=== PATIENT | female | born 1960 | race Caucasian/White ===

== ENCOUNTER 2020-08-03 08:02 | Outpatient (REF) | payer BC, SELFPAY ==
[2020-08-03 11:49] LABS: Alanine Aminotransferase 14 U/L (0-31); Albumin Level 4.2 g/dL (3.5-5.0); Alkaline Phosphatase 62 U/L (39-117); Anion Gap 12 (12-20); Aspartate Amino Transferase 21 U/L (5-31); Bilirubin Total 1.2 mg/dL (0.0-1.0); Blood Urea Nitrogen 18 mg/dL (9-16); Calcium 8.9 mg/dL (8.4-10.2); Carbon Dioxide 28 mmol/L (22-29); Chloride 101 mmol/L (96-108); Cholesterol 168 mg/dL; Estimated Glomerular Filt Rate 56; Glucose Fasting 79 mg/dL (60-99); HDL Cholesterol 46 mg/dL; LDL Cholesterol Calculated 112 mg/dl; Potassium 4.3 mmol/l (3.3-5.1); Sodium 137 mmol/L (135-145); Total Protein 6.8 g/dL (6.5-8.0); Triglycerides 52 mg/dL
== END 2020-08-03 08:03 | disposition home or self-care (01) ==
LOC: HO.HMGCLDS 08:02
PROVIDERS: PCP Internal Medicine; Visit Provider Internal Medicine
DX: F41.9 Anxiety disorder, unspecified (principal); E03.9 Hypothyroidism, unspecified; E78.2 Mixed hyperlipidemia
CPT/HCPCS: 80053; 80061

== ENCOUNTER 2021-05-14 09:03 | Outpatient (REF) | payer BC, SELFPAY ==
--- NOTE | ~2021-05-14 | XR_ITS ---
EXAMINATION: XR CERVICAL SPINE CLINICAL INFORMATION: Cervical disc disorder. COMPARISON: None TECHNIQUE: 5 views of the cervical spine were obtained. FINDINGS: There is normal cervical lordosis and spinal alignment with apex at C5. Mild multilevel anterior osteophyte formation is seen. The vertebral bodies and intervertebral disc spaces are unremarkable. The neural foramina are patent. The facet joints are unremarkable. The spinous processes are intact. The odontoid process is intact. The prevertebral soft tissues are unremarkable. XR/XR cervical spine 4V IMPRESSION: Mild reversal the normal cervical lordosis may be secondary to positioning and/or muscle spasm. No other significant abnormality.
== END 2021-05-14 09:04 | disposition home or self-care (01) ==
LOC: HO.HMGCX 09:03
PROVIDERS: PCP Internal Medicine; Visit Provider Nurse Practitioner Family
DX: M50.90 Cervical disc disorder, unspecified, unspecified cervical region (principal)
CPT/HCPCS: 72050

== ENCOUNTER 2021-06-11 11:22 | Outpatient (REF) | payer BC, SELFPAY ==
--- NOTE | ~2021-06-11 | US_ITS ---
EXAMINATION: US SOFT TISSUE NECK CLINICAL INFORMATION: Cervicalgia COMPARISON: X-ray of the cervical spine April 2021 TECHNIQUE: Ultrasound of the left posterior neck soft tissues is performed with high- frequency chavez-scale imaging and color Doppler. FINDINGS: No abnormality is evident by ultrasound. No adenopathy, mass or fluid collection is seen. US/US soft tiss head and/or neck IMPRESSION: No abnormality seen by ultrasound.
== END 2021-06-11 11:23 | disposition home or self-care (01) ==
LOC: HO.HMGCX 11:22
PROVIDERS: PCP Internal Medicine; Visit Provider Nurse Practitioner Family
DX: M54.2 Cervicalgia (principal)
CPT/HCPCS: 76536

== ENCOUNTER 2021-08-05 10:24 | Outpatient (REF) | payer BC, SELFPAY ==
--- NOTE | ~2021-08-05 | MR_ITS ---
EXAMINATION: MR BRAIN WITHOUT AND WITH CONTRAST CLINICAL INFORMATION: Trigeminal neuralgia. Left facial pain. COMPARISON: No relevant prior imaging. TECHNIQUE: Multiplanar MR imaging of the brain was performed without and with contrast. A total of 6.5 mL Gadavist was utilized for this examination. FINDINGS: Dedicated imaging through the posterior fossa reveals no cerebellopontine angle cistern mass. There is no abnormal enhancement along the cisternal segments of the 5th cranial nerves. No identifiable neurovascular conflict. Cavernous sinuses enhance symmetrically. Meckel's caves are unremarkable. 7th and 8th cranial nerve complexes are unremarkable. There is no mastoid or middle ear effusion. No abnormal petrous temporal bone enhancement. Postcontrast images of the whole brain reveal no abnormal mass or enhancement elsewhere within the intracranial compartment. No intracranial mass effect or midline shift. Lateral and third ventricles are normal. No hydrocephalus. Midline structures including the cervicomedullary junction are normal. No acute bone marrow signal changes. There is no acute territorial infarct. Intracranial vascular flow voids are maintained. No active paranasal sinus disease. Globes and orbits are symmetric. MR/MR head/brain wo/w con IMPRESSION: Normal brain MRI. No discrete anatomic finding to provide a definitive explanation for this patient's left facial pain.
== END 2021-08-05 10:25 | disposition home or self-care (01) ==
LOC: HO.MRI 10:24
PROVIDERS: Visit Provider Psychiatry & Neurology Neurology
DX: G50.0 Trigeminal neuralgia (principal)
CPT/HCPCS: 70553; A9585

== ENCOUNTER 2021-09-03 09:40 | Outpatient (REF) | payer BC, SELFPAY ==
[2021-09-03 11:43] LABS: Hematocrit 41.2 % (37.0-47.0); Hemoglobin 14.2 g/dl (12.0-16.0); Mean Corpuscular HGB Conc 34.5 g/dl (31.0-35.0); Mean Corpuscular Hemoglobin 32.3 pg (27.0-33.0); Mean Corpuscular Volume 93.8 fL (80.0-98.0); Mean Platelet Volume 10.4 fL (9.4-12.3); Platelet Count 221 X10*3/uL (160-400); Red Blood Count 4.39 X10*6/uL (4.20-5.50); Red Cell Distribution Width 11.8 % (11.0-16.0); White Blood Count 4.7 X10*3/uL (4.8-10.8)
[2021-09-03 12:11] LABS: Alanine Aminotransferase 39 U/L (0-31); Albumin Level 4.1 g/dL (3.5-5.0); Alkaline Phosphatase 50 U/L (39-117); Anion Gap 12 (12-20); Aspartate Amino Transferase 39 U/L (5-31); Bilirubin Total 0.7 mg/dL (0.0-1.0); Blood Urea Nitrogen 20 mg/dL (9-16); Calcium 9.6 mg/dL (8.4-10.2); Carbon Dioxide 28 mmol/L (22-29); Chloride 104 mmol/L (96-108); Cholesterol 174 mg/dL; Estimated Glomerular Filt Rate > 60; Glucose Fasting 87 mg/dL (60-99); HDL Cholesterol 52 mg/dL; LDL Cholesterol Calculated 106 mg/dl; Potassium 4.5 mmol/L (3.3-5.1); Sodium 139 mmol/L (135-145); Total Protein 6.6 g/dL (6.5-8.0); Triglycerides 82 mg/dL
[2021-09-03 12:15] LABS: TSH reflex Free T4 0.04 uIU/mL (0.32-4.0)
[2021-09-03 12:55] LABS: Free T4 (Free Thyroxine) 1.47 ng/dL (0.71-1.85)
== END 2021-09-03 09:41 | disposition home or self-care (01) ==
LOC: HO.HMGCLDS 09:40
PROVIDERS: PCP Internal Medicine; Visit Provider Internal Medicine
DX: E78.5 Hyperlipidemia, unspecified (principal); E03.9 Hypothyroidism, unspecified; Z87.42 Personal history of other diseases of the female genital tract
CPT/HCPCS: 36415; 80053; 80061; 84439; 84443; 85027

== ENCOUNTER 2021-11-11 13:37 | Outpatient (REF) | payer BC, SELFPAY ==
[2021-11-11 16:54] LABS: Alanine Aminotransferase 18 U/L (0-31); Albumin Level 4.1 g/dL (3.5-5.0); Alkaline Phosphatase 72 U/L (39-117); Aspartate Amino Transferase 18 U/L (5-31); Bilirubin Direct 0.3 mg/dL (0.0-0.5); Bilirubin Total 0.8 mg/dL (0.0-1.0); Total Protein 6.6 g/dL (6.5-8.0)
[2021-11-11 17:16] LABS: TSH reflex Free T4 0.05 uIU/mL (0.32-4.0)
[2021-11-11 18:08] LABS: Free T4 (Free Thyroxine) 1.19 ng/dL (0.71-1.85)
== END 2021-11-11 13:38 | disposition home or self-care (01) ==
LOC: HO.HMGCLDS 13:37
PROVIDERS: Visit Provider Internal Medicine
DX: Z00.00 Encounter for general adult medical examination without abnormal findings (principal); E03.9 Hypothyroidism, unspecified
CPT/HCPCS: 36415; 80076; 84439; 84443

== ENCOUNTER 2022-03-13 09:01 | Outpatient (REF) | payer BC, SELFPAY ==
[2022-03-13 11:26] LABS: Alanine Aminotransferase 25 U/L (0-31); Albumin Level 4.2 g/dL (3.5-5.0); Alkaline Phosphatase 59 U/L (39-117); Anion Gap 13 (12-20); Aspartate Amino Transferase 28 U/L (5-31); Bilirubin Total 0.6 mg/dL (0.0-1.0); Blood Urea Nitrogen 20 mg/dL (9-16); Calcium 9.4 mg/dL (8.4-10.2); Carbon Dioxide 27 mmol/L (22-29); Chloride 104 mmol/L (96-108); Estimated Glomerular Filt Rate 51; Glucose Fasting 98 mg/dL (60-99); Potassium 4.8 mmol/L (3.3-5.1); Sodium 139 mmol/L (135-145); Total Protein 6.8 g/dL (6.5-8.0)
[2022-03-13 11:47] LABS: TSH reflex Free T4 0.25 uIU/mL (0.32-4.0)
[2022-03-13 13:00] LABS: Free T4 (Free Thyroxine) 1.15 ng/dL (0.71-1.85)
[2022-03-15 07:41] LABS: Triiodothyronine T3 Free 2.8 pg/mL (2.3-4.2)
== END 2022-03-13 09:02 | disposition home or self-care (01) ==
LOC: HO.HMGCLDS 09:01
PROVIDERS: PCP Internal Medicine; Visit Provider Internal Medicine
DX: E03.9 Hypothyroidism, unspecified (principal)
CPT/HCPCS: 36415; 80053; 84439; 84443; 84481

== ENCOUNTER 2022-12-09 08:33 | Outpatient (REF) | payer BC, SELFPAY ==
[2022-12-09 11:44] LABS: MANUAL DIFF FLAG NO
[2022-12-09 11:49] LABS: Basophils Percent Auto 0.6 % (0-2); Eosinophils Absolute Auto 0.1 X10*3/uL (0.0-0.4); Eosinophils Percent Auto 1.8 % (0-4); Hematocrit 42.2 % (37.0-47.0); Hemoglobin 14.6 g/dl (12.0-16.0); Imm Gran Abs Auto 0.02 X10*3/uL (0.00-0.03); Imm Gran Pct Auto 0.4 % (0.0-0.4); Lymphocytes Absolute Auto 1.7 X10*3/uL (1.2-4.9); Lymphocytes Percent Auto 33.5 % (20-40); Mean Corpuscular HGB Conc 34.6 g/dl (31.0-35.0); Mean Corpuscular Hemoglobin 33.2 pg (27.0-33.0); Mean Corpuscular Volume 95.9 fL (80.0-98.0); Mean Platelet Volume 10.5 fL (9.4-12.3); Monocytes Absolute Auto 0.5 X10*3/uL (0.1-1.2); Monocytes Percent Auto 8.9 % (2-11); Neutrophils Absolute Auto 2.8 x10*3/uL (2.0-8.3); Neutrophils Percent Auto 54.8 % (45-73); Platelet Count 194 X10*3/uL (160-400); Red Cell Distribution Width 11.9 % (11.0-16.0); White Blood Count 5.1 X10*3/uL (4.8-10.8)
[2022-12-09 12:29] LABS: Alanine Aminotransferase 15 U/L (0-31); Albumin Level 3.9 g/dL (3.5-5.0); Alkaline Phosphatase 76 U/L (39-117); Anion Gap 11 (12-20); Aspartate Amino Transferase 17 U/L (5-31); Bilirubin Total 1.7 mg/dL (0.0-1.0); Blood Urea Nitrogen 17 mg/dL (9-16); Calcium 9.4 mg/dL (8.4-10.2); Carbon Dioxide 25 mmol/L (22-29); Chloride 107 mmol/L (96-108); Cholesterol 187 mg/dL; Estimated Glomerular Filt Rate 57; Glucose Fasting 84 mg/dL (60-99); HDL Cholesterol 42 mg/dL; LDL Cholesterol Calculated 129 mg/dl; Potassium 4.5 mmol/L (3.3-5.1); Sodium 138 mmol/L (135-145); TSH reflex Free T4 0.23 uIU/mL (0.32-4.0); Total Protein 6.2 g/dL (6.5-8.0); Triglycerides 84 mg/dL; Vitamin D 25-OH Total 31.2 ng/mL (>30)
[2022-12-09 13:33] LABS: Free T4 (Free Thyroxine) 1.38 ng/dL (0.71-1.85)
[2022-12-11 06:04] LABS: Triiodothyronine T3 Free 3.2 pg/mL (2.3-4.2)
== END 2022-12-09 08:34 | disposition home or self-care (01) ==
LOC: HO.HMGCLDS 08:33
PROVIDERS: PCP Internal Medicine; Visit Provider Internal Medicine
DX: Z00.00 Encounter for general adult medical examination without abnormal findings (principal); F41.9 Anxiety disorder, unspecified; E03.9 Hypothyroidism, unspecified
CPT/HCPCS: 36415; 80053; 80061; 82306; 84439; 84443; 84481; 85025

== ENCOUNTER 2023-03-20 11:31 | Outpatient (REF) | payer BC, SELFPAY ==
[2023-03-20 14:38] LABS: TSH reflex Free T4 0.53 uIU/mL (0.32-4.0)
[2023-03-22 18:28] LABS: Triiodothyronine T3 Free 3.4 pg/mL (2.3-4.2)
== END 2023-03-20 11:32 | disposition home or self-care (01) ==
LOC: HO.HMGCLDS 11:31
PROVIDERS: PCP Internal Medicine; Visit Provider Internal Medicine
DX: E03.9 Hypothyroidism, unspecified (principal)
CPT/HCPCS: 36415; 84443; 84481

== ENCOUNTER 2023-05-14 13:33 | Outpatient (AMB) | payer BC, SELFPAY ==
--- NOTE | 2023-05-14 14:10 | A.OFFPC_ITS ---
Vital Signs 05/14/23 14:11 Height 5 ft 2 in Weight 158 lb BMI 28.9 BP 106/66 Blood Pressure Location Rt brachial Position Sitting Pulse 90 Pulse Source Pulse Oximeter Pulse Oximetry (%) 97 Oxygen Delivery Method Room Air Intake Visit Reasons: Follow up to discuss paper work Intake Note: Pt is here today for a follow up visit on paper work. Allergies No Known Allergies Allergy (Verified 05/14/23 14:13) Medication List - Last Reconciled 05/14/23 by Susana Curtis MD amitriptyline 20 mg PO BEDTIME clonazepam mg PO estradiol 0.01%(0.1mg/gram) grams vaginal Levoxyl (levothyroxine) 137 mcg PO DAILY NS spironolactone 100 mg PO BID Tobacco use date assessed: 05/14/23 Dental Screening Dental Screen Date: 05/14/23 Did you have a dental visit in the last 12 months?: Yes Did you have a dental problem in the last 6 months where you did not have access to dental care?: No Was dental information given to patient?: Patient has dentist HPI Follow up to discuss paper work HPI Details Pt presents complaining of recurrent daily left-sided facial pressure radiating to throat since November, getting progressively worse. Patient has been seeing neurologist since November and having massage therapy without relief. She had 4 similar episodes in the past, the most recent 1 1/2 years ago. 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 Patient complains of feeling anxious, upset, crying a lot, not being able to concentrate at work. She cannot sit at a computer for longer than 5 minutes. She has been taking amitriptyline which makes her sleepy and groggy but has not been effective for the symptoms. Patient follows up with a counselor regularly. During the previous episode patient tried Zoloft and carbamazepine without significant relief. [facility] Medical History (Updated 12/10/22 @ 08:29 by Susana Curtis MD) Annual physical exam Anxiety Chronic neck pain Hirsutism History of mammogram History of PCOS Hyperlipidemia Hypothyroidism Normal pelvic exam Trigeminal nerve disorder Surgical History H/O colonoscopy Hx of cholecystectomy Family History Father Diabetes mellitus Mother Myocardial infarction Social History Housing: Apartment Patient Tobacco Use Status: Never used Tobacco e-Cigarette/Vaping Use: Never Used Second Hand Smoke Exposure: No service: No Current occupational status: employed Cognitive needs: No Hearing needs: No Vision needs: Yes Questionnaire Thrive Questionnaire Date Thrive assessed: 12/10/22 MARQUISE-7 AMB Questionnaire MARQUISE-7 Date MARQUISE - 7 assessed: 12/10/22 Source: Developed by Drs. Adrien Manzo, Judith Torrez, Celestine Garces and colleagues, with an educational reid from [employer]. Review of Systems Const All systems reviewed & are unremarkable except as noted in HPI and below Reports no additional complaints Eyes Reports no additional complaints ENT Reports no additional complaints Card Reports no additional complaints Resp Reports no additional complaints GI Reports no additional complaints Reports no additional complaints Physical exam (Primary Care) Vital Signs: Last Vital Signs Pulse 90 05/14/23 14:11 BP 106/66 05/14/23 14:11 Pulse Ox 97 05/14/23 14:11 Oxygen Delivery Method Room Air 05/14/23 14:11 BMI result Body Mass Index 28.9 Tobacco/Smoking Status: Tobacco use Status Tobacco use date assessed 05/14/23 05/14/23 14:16 Patient Tobacco Use Status Never used Tobacco 05/14/23 14:10 e-Cigarette/Vaping Use Never Used 05/14/23 14:10 Thrive Assessment: Date of Thrive Assessment Date Thrive assessed 12/10/22 05/14/23 14:10 Const General: no acute distress HENMT Ears: hearing grossly normal bilaterally Mouth: Normal oral and palatal mucosa present and oropharynx normal Throat: Yes posterior oropharynx normal Eyes General: appearance normal, both eyes and all related structures Neck Neck: Yes no lymphadenopathy and Yes supple Thyroid: Thyroid normal Resp Effort & Inspection: normal respiratory effort Auscultation: clear to auscultation bilaterally Cardio Rhythm: regular rhythm Heart sounds: S1 normal heart sound present and S2 normal heart sound present GI Inspection: Yes normal to inspection Palpation (GI): Soft to palpation Percussion: Yes normal to percussion Auscultation: normal bowel sounds Assessment and Plan Assessment & Plan (1) Trigeminal nerve disorder: Code(s): G50.9 - Disorder of trigeminal nerve, unspecified Plan: Patient will continue amitriptyline and will follow-up with Neurology (2) Anxiety: Code(s): F41.9 - Anxiety disorder, unspecified Plan: Try 1 mg of Abilify at bedtime for 1 month and follow-up in 1 month. Patient given out of work note until July 22. She will continue to follow-up with a counselor. Medications: New aripiprazole (Abilify) 1 mg (1/2 x 2 mg) PO BEDTIME 30 tabs 0RF Coding Level of Care Code Est Pt Level 3 (39558) Diagnoses Trigeminal nerve disorder G50.9 Anxiety F41.9
[2023-05-14 14:11] VITALS: BP 106/66; PULSE 90; O2SAT 97; BMI 28.9
== END 2023-05-14 15:24 | disposition home or self-care (01) ==
PROVIDERS: PCP Internal Medicine; Visit Provider Internal Medicine
DX: G50.9 Disorder of trigeminal nerve, unspecified (principal); F41.9 Anxiety disorder, unspecified
CPT/HCPCS: 99213

== ENCOUNTER 2023-07-08 12:22 | Outpatient (AMB) | payer BC, SELFPAY ==
--- NOTE | 2023-07-08 12:23 | A.OFFPC_ITS ---
Vital Signs 07/08/23 12:24 Height 5 ft 2 in Weight 154 lb BMI 28.2 BP 124/80 Blood Pressure Location Lt brachial Position Sitting Pulse 84 Pulse Source Pulse Oximeter Pulse Oximetry (%) 96 Oxygen Delivery Method Room Air Intake Visit Reasons: Facial Neuropathy Intake Note: Pt is here today for a follow up visit. Allergies No Known Allergies Allergy (Verified 07/08/23 12:29) Tobacco use date assessed: 07/08/23 HPI Facial Neuropathy HPI Details Pt presents for f/u facial neuropathy, anxiety, chronic LISA. Pt f/u with psychiatrist and neurology, getting acupuncture, massage therapy. Patient reports feels slightly better but needs to extend her out of work until the end of Aug. [facility] Medical History Normal pelvic exam Annual physical exam Trigeminal nerve disorder Hyperlipidemia Chronic neck pain Anxiety History of mammogram Hirsutism History of PCOS Hypothyroidism Surgical History H/O colonoscopy Hx of cholecystectomy Family History Father Diabetes mellitus Mother Myocardial infarction Social History Housing: Apartment Patient Tobacco Use Status: Never used Tobacco e-Cigarette/Vaping Use: Never Used Second Hand Smoke Exposure: No service: No Current occupational status: employed Cognitive needs: No Hearing needs: No Vision needs: Yes Questionnaire Thrive Questionnaire Date Thrive assessed: 12/10/22 MARQUISE-7 AMB Questionnaire MARQUISE-7 Date MARQUISE - 7 assessed: 12/10/22 Source: Developed by Drs. Adrien Manzo, Judith Torrez, Celestine Garces and colleagues, with an educational reid from [employer]. Review of Systems Const All systems reviewed & are unremarkable except as noted in HPI and below Reports no additional complaints Eyes Reports no additional complaints ENT Reports no additional complaints Card Reports no additional complaints Resp Reports no additional complaints GI Reports no additional complaints Reports no additional complaints Physical exam (Primary Care) Vital Signs: Last Vital Signs Pulse 84 07/08/23 12:24 BP 124/80 07/08/23 12:24 Pulse Ox 96 07/08/23 12:24 Oxygen Delivery Method Room Air 07/08/23 12:24 BMI result Body Mass Index 28.2 Tobacco/Smoking Status: Tobacco use Status Tobacco use date assessed 07/08/23 07/08/23 12:31 Patient Tobacco Use Status Never used Tobacco 07/08/23 12:25 e-Cigarette/Vaping Use Never Used 07/08/23 12:25 Thrive Assessment: Date of Thrive Assessment Date Thrive assessed 12/10/22 07/08/23 12:25 Const General: no acute distress HENMT Face and sinus: Yes normal facial exam Mouth: Normal oral and palatal mucosa present Neck Neck: Yes supple Resp Effort & Inspection: normal respiratory effort Auscultation: clear to auscultation bilaterally Cardio Rhythm: regular rhythm Heart sounds: S1 normal heart sound present and S2 normal heart sound present Assessment and Plan Assessment & Plan (1) Trigeminal nerve disorder: Code(s): G50.9 - Disorder of trigeminal nerve, unspecified Plan: Continue current treatment and follow-up with Neurology and psychiatrist out of work until September 20 (2) Anxiety: Code(s): F41.9 - Anxiety disorder, unspecified Coding Level of Care Code Est Pt Level 3 (27453) Diagnoses Trigeminal nerve disorder G50.9 Anxiety F41.9
[2023-07-08 12:24] VITALS: BP 124/80; PULSE 84; O2SAT 96; BMI 28.2
== END 2023-07-08 14:12 | disposition home or self-care (01) ==
PROVIDERS: PCP Internal Medicine; Visit Provider Internal Medicine
DX: G50.9 Disorder of trigeminal nerve, unspecified (principal); F41.9 Anxiety disorder, unspecified
CPT/HCPCS: 99213

== ENCOUNTER 2023-12-11 09:37 | Outpatient (REF) | payer BC, SELFPAY ==
[2023-12-11 13:16] LABS: MANUAL DIFF FLAG NO
[2023-12-11 13:17] LABS: Basophils Percent Auto 0.6 % (0-2); Eosinophils Absolute Auto 0.1 X10*3/uL (0.0-0.4); Eosinophils Percent Auto 1.2 % (0-4); Hematocrit 42.9 % (37.0-47.0); Hemoglobin 15.2 g/dl (12.0-16.0); Imm Gran Abs Auto 0.03 X10*3/uL (0.00-0.03); Imm Gran Pct Auto 0.5 % (0.0-0.4); Lymphocytes Percent Auto 29.8 % (20-40); Mean Corpuscular HGB Conc 35.4 g/dl (31.0-35.0); Mean Corpuscular Hemoglobin 32.4 pg (27.0-33.0); Mean Corpuscular Volume 91.5 fL (80.0-98.0); Mean Platelet Volume 9.2 fL (9.4-12.3); Monocytes Absolute Auto 0.5 X10*3/uL (0.1-1.2); Monocytes Percent Auto 7.2 % (2-11); Neutrophils Percent Auto 60.7 % (45-73); Platelet Count 253 X10*3/uL (160-400); Red Blood Count 4.69 X10*6/uL (4.20-5.50); Red Cell Distribution Width 11.5 % (11.0-16.0); White Blood Count 6.6 X10*3/uL (4.8-10.8)
[2023-12-11 13:37] LABS: Alanine Aminotransferase 39 U/L (0-31); Alkaline Phosphatase 60 U/L (39-117); Anion Gap 9 (12-20); Aspartate Amino Transferase 29 U/L (5-31); Bilirubin Total 1.2 mg/dL (0.0-1.0); Blood Urea Nitrogen 18 mg/dL (9-16); Calcium 9.5 mg/dL (8.4-10.2); Carbon Dioxide 28 mmol/L (22-29); Chloride 104 mmol/L (96-108); Cholesterol 198 mg/dL (<200); Estimated Glomerular Filt Rate > 60; Glucose Fasting 80 mg/dL (60-99); HDL Cholesterol 36 mg/dL (>40); LDL Cholesterol Calculated 127 mg/dL (<100); Potassium 4.4 mmol/L (3.3-5.1); Sodium 137 mmol/L (135-145); Total Protein 6.9 g/dL (6.5-8.0); Triglycerides 178 mg/dL (<150)
[2023-12-11 13:55] LABS: TSH reflex Free T4 0.16 uIU/mL (0.32-4.0); Vitamin D 25-OH Total 64.2 ng/mL (>30)
[2023-12-11 14:43] LABS: Free T4 (Free Thyroxine) 1.14 ng/dL (0.71-1.85)
[2023-12-12 08:33] LABS: Triiodothyronine T3 Free 2.9 pg/mL (2.3-4.2)
== END 2023-12-11 09:38 | disposition home or self-care (01) ==
LOC: HO.HMGCLDS 09:37
PROVIDERS: PCP Internal Medicine; Visit Provider Internal Medicine
DX: Z00.00 Encounter for general adult medical examination without abnormal findings (principal); E03.9 Hypothyroidism, unspecified; E78.5 Hyperlipidemia, unspecified
CPT/HCPCS: 36415; 80053; 80061; 82306; 84439; 84443; 84481; 85025

== ENCOUNTER 2023-12-14 10:23 | Outpatient (AMB) | payer BC, SELFPAY ==
[2023-12-14 10:48] VITALS: BP 126/78; PULSE 88; O2SAT 98; BMI 28.2
--- NOTE | 2023-12-14 10:48 | A.OFFPC_ITS ---
Vital Signs 12/14/23 10:48 Height 5 ft 2 in Weight 154 lb BMI 28.2 BP 126/78 Blood Pressure Location Lt brachial Position Sitting Pulse 88 Pulse Source Pulse Oximeter Pulse Oximetry (%) 98 Oxygen Delivery Method Room Air Intake Visit Reasons: Annual PE Intake Note: Pt is here today for PE. Allergies No Known Allergies Allergy (Verified 12/14/23 10:49) Medication List - Last Reconciled 12/14/23 by Susana Curtis MD amitriptyline 20 mg PO BEDTIME clonazepam mg PO estradiol 0.01%(0.1mg/gram) grams vaginal levothyroxine 125 mcg PO DAILY Levoxyl (levothyroxine) 137 mcg PO DAILY NS spironolactone 100 mg PO BID Tobacco use date assessed: 12/14/23 Dental Screening Dental Screen Date: 12/14/23 Did you have a dental visit in the last 12 months?: Yes Did you have a dental problem in the last 6 months where you did not have access to dental care?: No Was dental information given to patient?: Patient has dentist HPI Annual PE HPI Details Pt presents for PE. Patient is feeling better . the chronic left-sided facial pain almost completely resolved since patient started a mind-body connection program online and mindfulness. She continues to take amitriptyline and clonazepam and follows up with Neurology [facility] Medical History Normal pelvic exam Annual physical exam Trigeminal nerve disorder Hyperlipidemia Chronic neck pain Anxiety History of mammogram Hirsutism History of PCOS Hypothyroidism Surgical History H/O colonoscopy Hx of cholecystectomy Family History Father Diabetes mellitus Mother Myocardial infarction Social History Housing: Apartment Patient Tobacco Use Status: Never used Tobacco e-Cigarette/Vaping Use: Never Used Second Hand Smoke Exposure: No service: No Current occupational status: employed Cognitive needs: No Hearing needs: No Vision needs: Yes Questionnaire Thrive Questionnaire Date Thrive assessed: 12/10/22 I am a: Patient What is your living situation today?: I have a steady place to live Within the past 12 months, did the food you bought not last and you didn't have the money to get more?: Never true Within the past 12 months, did you worry whether your food would run out before you got money to buy more?: Never true Please select the resources that you would like help with: None THRIVE Score: 0 AUDIT C Alcohol Use Questionnaire (AUDIT-C) 1. How often do you have a drink containing alcohol?: 2-4 times a month 2. How many drinks containing alcohol do you have on a typical day when you are drinking?: 1 or 2 3. How often do you have six or more drinks on one occasion?: Never Total Score: 2 MARQUISE-7 AMB Questionnaire MARQUISE-7 Date MARQUISE - 7 assessed: 12/10/22 Feeling nervous, anxious, or on edge: 0 = Not at all Not being able to stop or control worryin = Not at all Worrying too much about different things: 0 = Not at all Trouble relaxin = Not at all Being so restless that it is hard to sit still: 0 = Not at all Becoming easily annoyed or irritable: 0 = Not at all Feeling afraid as if something awful might happen: 0 = Not at all Total MARQUISE-7 score (0-4 normal; 5-9 mild; 10-14 moderate; 15-21 severe): 0 Source: Developed by Drs. Adrien Manzo, Judith Torrez, Celestine Garces and colleagues, with an educational reid from [employer]. Review of Systems Const All systems reviewed & are unremarkable except as noted in HPI and below Reports no additional complaints Eyes Reports no additional complaints ENT Reports no additional complaints Card Reports no additional complaints Resp Reports no additional complaints GI Reports no additional complaints Reports no additional complaints Physical exam (Primary Care) Vital Signs: Last Vital Signs Pulse 88 12/14/23 10:48 BP 126/78 12/14/23 10:48 Pulse Ox 98 12/14/23 10:48 Oxygen Delivery Method Room Air 12/14/23 10:48 BMI result Body Mass Index 28.2 Tobacco/Smoking Status: Tobacco use Status Tobacco use date assessed 12/14/23 12/14/23 10:51 Patient Tobacco Use Status Never used Tobacco 12/14/23 10:51 e-Cigarette/Vaping Use Never Used 12/14/23 10:51 Thrive Assessment: Date of Thrive Assessment Date Thrive assessed 12/10/22 12/14/23 10:51 Const General: no acute distress HENMT Head: Yes normal to inspection Throat: Yes posterior oropharynx normal Resp Effort & Inspection: normal respiratory effort Auscultation: clear to auscultation bilaterally Cardio Rhythm: regular rhythm Heart sounds: S1 normal heart sound present and S2 normal heart sound present GI Inspection: Yes normal to inspection Palpation (GI): Soft to palpation Percussion: Yes normal to percussion Auscultation: normal bowel sounds Assessment and Plan Assessment & Plan (1) Hypothyroidism: Code(s): E03.9 - Hypothyroidism, unspecified Plan: TSH is suppressed, decrease Levoxyl to 125 mcg daily and repeat TSH in 2 months (2) Hyperlipidemia: Code(s): E78.5 - Hyperlipidemia, unspecified Plan: Continue low-cholesterol diet (3) Annual physical exam: Code(s): Z00.00 - Encounter for general adult medical examination without abnormal findings Plan: Well-balanced diet regular exercise discussed with the patient mammogram will be scheduled. 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 she is up-to-date with colonoscopy Orders: Orders Lipid Panel 1 Month E03.9 - Hypothyroidism, unspecified, E78.5 - Hyperlipidemia, unspecified, Z00.00 - Encounter for general adult medical examination without abnormal findings Complete Blood Count Auto Diff 1 Month E03.9 - Hypothyroidism, unspecified, E78.5 - Hyperlipidemia, unspecified, Z00.00 - Encounter for general adult medical examination without abnormal findings TSH reflex Free T4 1 Month E03.9 - Hypothyroidism, unspecified, E78.5 - Hyperlipidemia, unspecified, Z00.00 - Encounter for general adult medical examination without abnormal findings UA w Microscopic 1 Month E03.9 - Hypothyroidism, unspecified, E78.5 - Hyperlipidemia, unspecified, Z00.00 - Encounter for general adult medical examination without abnormal findings TSH reflex Free T4 6 Months E03.9 - Hypothyroidism, unspecified, E78.5 - Hyperlipidemia, unspecified, Z00.00 - Encounter for general adult medical examination without abnormal findings TSH reflex Free T4 1 Year E03.9 - Hypothyroidism, unspecified, E78.5 - Hyperlipidemia, unspecified, Z00.00 - Encounter for general adult medical examination without abnormal findings UA w Microscopic 1 Year E03.9 - Hypothyroidism, unspecified, E78.5 - Hyperlipidemia, unspecified, Z00.00 - Encounter for general adult medical examination without abnormal findings Vitamin D 25-OH Total 1 Year E03.9 - Hypothyroidism, unspecified, E78.5 - Hyperlipidemia, unspecified, Z00.00 - Encounter for general adult medical examination without abnormal findings TSH reflex Free T4 2 Months E03.9 - Hypothyroidism, unspecified Comprehensive [place]. Panel Fast 1 Month E03.9 - Hypothyroidism, unspecified, E78.5 - Hyperlipidemia, unspecified, Z00.00 - Encounter for general adult medical examination without abnormal findings Lipid Panel 6 Months E03.9 - Hypothyroidism, unspecified, E78.5 - Hyperlipidemia, unspecified, Z00.00 - Encounter for general adult medical examination without abnormal findings Comprehensive [place]. Panel Fast 1 Year E03.9 - Hypothyroidism, unspecified, E78.5 - Hyperlipidemia, unspecified, Z00.00 - Encounter for general adult medical ex amination without abnormal findings Complete Blood Count Auto Diff 1 Year E03.9 - Hypothyroidism, unspecified, E78.5 - Hyperlipidemia, unspecified, Z00.00 - Encounter for general adult medical examination without abnormal findings Lipid Panel 1 Year E03.9 - Hypothyroidism, unspecified, E78.5 - Hyperlipidemia, unspecified, Z00.00 - Encounter for general adult medical examination without abnormal findings Medications: New Levoxyl (levothyroxine) 125 mcg PO DAILY 60 tabs 0RF NS Discontinued Levoxyl (levothyroxine) Discontinued Reason: Doctor's Order 137 mcg PO DAILY 90 tabs 3RF NS Coding Level of Care Code Est Pt Prev Care 40-64y(45759) Diagnoses Hypothyroidism E03.9 Hyperlipidemia E78.5 Annual physical exam Z00.00
== END 2023-12-14 13:41 | disposition home or self-care (01) ==
PROVIDERS: Visit Provider Internal Medicine
DX: E03.9 Hypothyroidism, unspecified (principal); E78.5 Hyperlipidemia, unspecified; Z00.00 Encounter for general adult medical examination without abnormal findings
CPT/HCPCS: 99396

== ENCOUNTER 2024-02-19 09:47 | Outpatient (REF) | payer BC, SELFPAY ==
[2024-02-19 14:30] LABS: TSH reflex Free T4 0.19 uIU/mL (0.32-4.0)
[2024-02-19 15:06] LABS: Free T4 (Free Thyroxine) 1.17 ng/dL (0.71-1.85)
== END 2024-02-19 09:48 | disposition home or self-care (01) ==
LOC: HO.HMGCLDS 09:47
PROVIDERS: PCP Internal Medicine; Visit Provider Internal Medicine
DX: E03.9 Hypothyroidism, unspecified (principal)
CPT/HCPCS: 36415; 84439; 84443

== ENCOUNTER 2024-06-01 09:02 | Outpatient (REF) | payer BC, SELFPAY ==
[2024-06-01 11:19] LABS: Cholesterol 211 mg/dL (<200); HDL Cholesterol 44 mg/dL (>40); LDL Cholesterol Calculated 144 mg/dL (<100); Triglycerides 119 mg/dL (<150)
[2024-06-01 11:26] LABS: TSH reflex Free T4 0.49 uIU/mL (0.32-4.0)
== END 2024-06-01 09:03 | disposition home or self-care (01) ==
LOC: HO.HMGCLDS 09:02
PROVIDERS: PCP Internal Medicine; Visit Provider Internal Medicine
DX: Z00.00 Encounter for general adult medical examination without abnormal findings (principal); E78.5 Hyperlipidemia, unspecified; E03.9 Hypothyroidism, unspecified
CPT/HCPCS: 36415; 80061; 84443

== ENCOUNTER 2024-12-27 09:20 | Outpatient (REF) | payer BC, SELFPAY ==
[2024-12-27 09:59] LABS: MANUAL DIFF FLAG NO
[2024-12-27 10:10] LABS: Basophils Percent Auto 0.8 % (0-2); Eosinophils Absolute Auto 0.1 X10*3/uL (0.0-0.4); Eosinophils Percent Auto 1.8 % (0-4); Hematocrit 37.9 % (37.0-47.0); Hemoglobin 13.5 g/dl (12.0-16.0); Imm Gran Abs Auto 0.01 X10*3/uL (0.00-0.03); Imm Gran Pct Auto 0.2 % (0.0-0.4); Lymphocytes Absolute Auto 1.8 X10*3/uL (1.2-4.9); Lymphocytes Percent Auto 35.2 % (20-40); Mean Corpuscular HGB Conc 35.6 g/dl (31.0-35.0); Mean Corpuscular Volume 92.7 fL (80.0-98.0); Mean Platelet Volume 9.6 fL (9.4-12.3); Monocytes Absolute Auto 0.5 X10*3/uL (0.1-1.2); Neutrophils Absolute Auto 2.7 x10*3/uL (2.0-8.3); Platelet Count 245 X10*3/uL (160-400); Red Blood Count 4.09 X10*6/uL (4.20-5.50); Red Cell Distribution Width 12.4 % (11.0-16.0); White Blood Count 5.1 X10*3/uL (4.8-10.8)
--- OUTSIDE RECORDS SUMMARY | 2024-12-27 10:26 | XMS_ITS | Clinical Summary ---
Author Organization [facility] Address [address] [facility] [place] [address] Care Team Providers Care Director Ambulatory Name Role Phone Pcp, No Primary Care Provider [phone] Social History Tobacco Use Types Packs/Day Years Used Date Smoking Tobacco: Never Assessed Comments Unknown Sex and Gender Information Value Date Recorded Sex Assigned at Female 09/04/2021 9:42 PM EST Legal Sex Female 8:41 PM EDT Gender Identity Female 09/04/2021 9:42 PM EST Sexual Orientation Straight 09/04/2021 9: 42 PM EST Plan of Treatment Health Maintenance Due Date Last Done Comments Colorectal Cancer: COLONOSCO PY Screening every 10 yrs (or Modifier) 1962 Depression: Screening Annual ly using PHQ-2/9 in Adults 18 yrs or above (or HM Modifier)([facility]) 1980 Hepatitis C Virus Infection in Adolescents and Adults: Screening (or Modifier) ([facility]) 1980 [facility] Screening Reminder: Minnie calderon for all adults ([facility]) 1980 Tobacco Smoking Cessation: i n Adults excluding Women: Behavioral and Pharmacotherapy Interventions ([facility]) 1980 DTaP/Tdap/Td Vaccines ([facility]) (1 - Tdap) 1981 Cervical Cancer Screenin 1-65 yrs of age (or Modifier) 1983 Cervical Cancer Screening: P ap every 3 yrs pts age 21-65 1983 Cervical Cancer: Pap Screeni ng with Modifier timing ([facility]) 1983 Cervical Cancer: hrHPV alone or with cotesting Pap for Pts 30-65yrs screening every 5yrs ([facility]) 1983 Colorectal Cancer Screening 45 -75 Yrs (or HM Modifier) 2007 Colorectal Cancer: FLEXIBLE SIGMOIDOSCOPY Screening every 5 yrs 2007 Colorectal Cancer: Fecal Immunochemical Test (FIT) Annually [facility] 2007 Colorectal Cancer: High-sens itivity gFOBT Screening Annually [facility] 2007 Colorectal Cancer: Stool Col oguard Screening every 3 yrs 2007 Colorectal Cancer:CT Colonog louisa Screening every 5 yrs 2007 Lipid Screening: Every 5 yrs for Women aged 45+ (or HM Modifier) ([facility]) 2008 Breast Cancer: Screening Minnie ually age 50-74 yrs (or HM Modifier)([facility]) 2012 Zoster/Shingles Vaccine Seri es Screening: Adults aged 18+ yrs (or HM Modifiers)([facility]) (1 of 2) 2012 Flu Vaccination: Yearly for ages 18mos through 64 years (or Modifier)([facility]) 04/21/2024 COVID-19 Vaccine Screening: Initial Series and Booster Status ([facility]) (2023- season) 2024 RSV Vaccines (1 - 1-dose 75+ series) 2037 Pneumococcal Vaccination Scr eening: Pts 0-19 & 19-49 yrs of age ([facility]) Aged Out No longer eligible based on patient's age to complete this topic Medical Devices Not on file Insurance [facility] Care Teams Director Ambulatory Relationship Specialty Start Date End Date Pcp, Moni PCP - General Family Medicine 08/11/20
[2024-12-27 11:01] LABS: Alanine Aminotransferase 15 U/L (0-31); Alkaline Phosphatase 57 U/L (39-117); Anion Gap 7 (12-20); Aspartate Amino Transferase 21 U/L (5-31); Blood Urea Nitrogen 20 mg/dL (9-16); Calcium 9.3 mg/dL (8.4-10.2); Carbon Dioxide 26 mmol/L (22-29); Chloride 109 mmol/L (96-108); Cholesterol 197 mg/dL (<200); Estimated Glomerular Filt Rate > 60; Glucose Fasting 81 mg/dL (60-99); HDL Cholesterol 43 mg/dL (>40); LDL Cholesterol Calculated 131 mg/dL (<100); Potassium 4.3 mmol/L (3.3-5.1); Sodium 138 mmol/L (135-145); Total Protein 6.4 g/dL (6.5-8.0); Triglycerides 118 mg/dL (<150)
[2024-12-27 11:17] LABS: TSH reflex Free T4 0.05 uIU/mL (0.32-4.0); Vitamin D 25-OH Total 33.5 ng/mL (>30)
[2024-12-27 12:06] LABS: Free T4 (Free Thyroxine) 1.47 ng/dL (0.71-1.85)
[2024-12-27 13:21] LABS: Appearance Urine Cloudy; Color Urine Yellow; Glucose Urine UA Negative (Negative); Leukocyte Esterase Urine Small (1+) (Negative); Nitrite Urine Negative (Negative); PH 5.5 (5.0-9.0); UMIC TRIGGER UA YES; Urine Blood Negative (Negative); Urine Ketones Negative (Negative); Urine Protein Negative (Neg-Trace)
[2024-12-27 13:28] LABS: Bacteria Urine Trace (None Seen); Hyaline Casts Urine 0-2 /LPF (0-2); RBC Urine 0-2 /HPF (0-2); Squamous Epithelial Cell Urine 0-2 /HPF (0-2); WBC Urine 21-50 /HPF (0-5)
== END 2024-12-27 09:21 | disposition home or self-care (01) ==
LOC: HO.HMGCLDS 09:20
PROVIDERS: PCP Internal Medicine; Visit Provider Internal Medicine
DX: Z00.00 Encounter for general adult medical examination without abnormal findings (principal); E78.5 Hyperlipidemia, unspecified; E03.9 Hypothyroidism, unspecified
CPT/HCPCS: 36415; 80053; 80061; 81001; 82306; 84439; 84443; 85025

== ENCOUNTER 2024-12-29 12:56 | Outpatient (AMB) | payer BC, SELFPAY ==
--- NOTE | 2024-12-29 13:02 | A.OFFPC_ITS ---
Vital Signs 12/29/24 13:06 Height 5 ft 2 in Weight 148 lb BMI 27.1 BP 104/74 Blood Pressure Location Lt brachial Position Sitting Respiration 18 Pulse 95 Pulse Source Pulse Oximeter Pulse Oximetry (%) 98 Oxygen Delivery Method Room Air Intake Visit Reasons: Annual PE Intake Note: Pt is here today for PE. Allergies No Known Allergies Allergy (Verified 12/29/24 13:04) Medication List - Last Reconciled 12/29/24 by Susana Curtis MD amitriptyline 20 mg PO BEDTIME clonazepam mg PO QID PRN levothyroxine 112 mcg PO DAILY spironolactone 100 mg PO BID Tobacco use date assessed: 12/29/24 Dental Screening Dental Screen Date: 12/29/24 Did you have a dental visit in the last 12 months?: Yes Did you have a dental problem in the last 6 months where you did not have access to dental care?: No Was dental information given to patient?: Patient has dentist HPI Annual PE HPI Details Patient presents for PE. [facility] Medical History Normal pelvic exam Annual physical exam Trigeminal nerve disorder Hyperlipidemia Chronic neck pain Anxiety History of mammogram Hirsutism History of PCOS Hypothyroidism Surgical History H/O colonoscopy Hx of cholecystectomy Family History Father Diabetes mellitus Mother Myocardial infarction Social History Housing: Apartment Patient Tobacco Use Status: Never used Tobacco e-Cigarette/Vaping Use: Never Used Second Hand Smoke Exposure: No service: No Current occupational status: employed Cognitive needs: No Hearing needs: No Vision needs: Yes Questionnaire PHQ-9 Over the last 2 weeks, how often have you been bothered by any of the following problems? 1. Little interest or pleasure in doing things: not at all 2. Feeling down, depressed, or hopeless: not at all 3. Trouble falling or staying asleep, or sleeping too much: not at all 4. Feeling tired or having little energy: not at all 5. Poor appetite or overeating: not at all 6. Feeling bad about yourself - or that you are a failure or have let yourself or your family down: not at all 7. Trouble concentrating on things, such as reading the newspaper or watching television: not at all 8. Moving or speaking so slowly that other people could have noticed. Or the opposite - being so fidgety or restless that you have been moving around a lot more than usual: not at all 9. Thoughts that you would be better off or of hurting yourself in some way: not at all Total score: 0 Depression Screening Interpretation: Negative Depression Screening Done: Yes 87671 - PHQ-9 Billing: Yes Source: Developed by Drs. Adrien Manzo, Judith Torrez, Celestine Garces and colleagues, with an educational reid from [employer]. Thrive Questionnaire Date Thrive assessed: 12/29/24 I am a: Patient What is your living situation today?: I have a steady place to live Within the past 12 months, did the food you bought not last and you didn't have the money to get more?: Never true Within the past 12 months, did you worry whether your food would run out before you got money to buy more?: Never true Do you have trouble paying for medicines?: No Do you have trouble getting transportation to medical appointments?: No Do you have trouble paying your heating and electricity bill?: No Do you have trouble taking care of your child, family member or friend?: No Do you have trouble with day-to-day activities such as bathing, preparing meals, shopping, managing finances, etc.?: No Are you currently unemployed and looking for a job?: No Are you interested in more education?: No Please select the resources that you would like help with: None Currently or been in a relationship where the following occur: No concerns reported THRIVE Score: 0 AUDIT C Alcohol Use Questionnaire (AUDIT-C) 1. How often do you have a drink containing alcohol?: 2-4 times a month 2. How many drinks containing alcohol do you have on a typical day when you are drinking?: 1 or 2 3. How often do you have six or more drinks on one occasion?: Never Total Score: 2 MARQUISE-7 AMB Questionnaire MARQUISE-7 Date MARQUISE - 7 assessed: 12/29/24 Feeling nervous, anxious, or on edge: 0 = Not at all Not being able to stop or control worryin = Not at all Worrying too much about different things: 0 = Not at all Trouble relaxin = Not at all Being so restless that it is hard to sit still: 0 = Not at all Becoming easily annoyed or irritable: 0 = Not at all Feeling afraid as if something awful might happen: 0 = Not at all Total MARQUISE-7 score (0-4 normal; 5-9 mild; 10-14 moderate; 15-21 severe): 0 Source: Developed by Drs. Adrien Manzo, Judith Torrez, Celestine Garces and colleagues, with an educational reid from [employer]. MARQUISE-7 Assessment Billing MARQUISE-7 Assessment Tool: MARQUISE-7 Assessment 98345 Review of Systems Const All systems reviewed & are unremarkable except as noted in HPI and below Eyes Reports no additional complaints ENT Reports no additional complaints Card Reports no additional complaints Resp Reports no additional complaints GI Reports no additional complaints Reports no additional complaints Physical exam (Primary Care) Vital Signs: Last Vital Signs Pulse 95 12/29/24 13:06 Resp 18 12/29/24 13:06 BP 104/74 12/29/24 13:06 Pulse Ox 98 12/29/24 13:06 Oxygen Delivery Method Room Air 12/29/24 13:06 BMI result Body Mass Index 27.1 Tobacco/Smoking Status: Tobacco use Status Tobacco use date assessed 12/29/24 12/29/24 13:12 Patient Tobacco Use Status Never used Tobacco 12/29/24 13:02 e-Cigarette/Vaping Use Never Used 12/29/24 13:02 PHQ-9: PHQ-9 Score PHQ-9: Total score 0 12/29/24 15:28 Depression Screening Interpretation: Negative Thrive Assessment: Date of Thrive Assessment Date Thrive assessed 12/29/24 12/29/24 13:12 Currently or been in a relationship where the following occur: No concerns reported Const General: no acute distress HENMT Ears: TM's normal bilaterally Face and sinus: Yes normal facial exam Mouth: Normal oral and palatal mucosa present Eyes General: appearance normal, both eyes and all related structures Neck Neck: Yes no lymphadenopathy and Yes supple Resp Effort & Inspection: normal respiratory effort Auscultation: clear to auscultation bilaterally Cardio Rhythm: regular rhythm Heart sounds: S1 normal heart sound present and S2 normal heart sound present GI Inspection: Yes normal to inspection Palpation (GI): Soft to palpation Percussion: Yes normal to percussion Auscultation: normal bowel sounds Coding Level of Care Code Est Pt Prev Care 40-64y(04127) Diagnoses Hypothyroidism E03.9 Dysplastic nevi D23.9 Hyperlipidemia E78.5 Annual physical exam Z00.00 Additional Codes MARQUISE-7 Assessment Billing - MARQUISE-7 Assessment Tool: MARQUISE-7 Assessment 92264 ([id number]) PHQ-9 - 86433 - PHQ-9 Billing: Yes ([id number]) Assessment & Plan Assessment & Plan (1) Hypothyroidism: Code(s): E03.9 - Hypothyroidism, unspecified Category: Medical Plan: TSH is borderline low. Patient was advised to take half a tablet of levothyroxine one day a week and a full tablet the rest of the week and repeat blood test in 6 weeks (2) Dysplastic nevi: Code(s): D23.9 - Other benign neoplasm of skin, unspecified Category: Medical Plan: Referred to dermatology (3) Hyperlipidemia: Code(s): E78.5 - Hyperlipidemia, unspecified Category: Medical Plan: Continue low-cholesterol diet (4) Annual physical exam: Code(s): Z00.00 - Encounter for general adult medical examination without abnormal findings Category: Medical Plan: Well-balanced diet regular physical activity discussed with the patient. She is up-to-date with the mammogram colonoscopy and Pap by [facility] Orders: Orders TSH reflex Free T4 6 Weeks E03.9 - Hypothyroidism, unspecified Complete Blood Count Auto Diff 1 Year E03.9 - Hypothyroidism, unspecified, E78.5 - Hyperlipidemia, unspecified, Z00.00 - Encounter for general adult medical examination without abnormal findings Lipid Panel 1 Year E03.9 - Hypothyroidism, unspecified, E78.5 - Hyperlipidemia, unspecified, Z00.00 - Encounter for general adult medical examination without abnormal findings Comprehensive [place]. Panel Fast 1 Year E03.9 - Hypothyroidism, unspecified, E78.5 - Hyperlipidemia, unspecified, Z00.00 - Encounter for general adult medical examination without abnormal findings TSH reflex Free T4 1 Year E03.9 - Hypothyroidism, unspecified, E78.5 - Hyperlipidemia, unspecified, Z00.00 - Encounter for general adult medical examination without abnormal findings Vitamin D 25-OH Total 1 Year E03.9 - Hypothyroidism, unspecified, E78.5 - Hyperlipidemia, unspecified, Z00.00 - Encounter for general adult medical examination without abnormal findings Referrals Dermatology Referral D23.9 - Other benign neoplasm of skin, unspecified Medications: Changed From levothyroxine 112 mcg PO DAILY 90 tabs 1RF To levothyroxine half tablet one day a week and a one tablet the rest of the week 90 tabs 3RF
[2024-12-29 13:06] VITALS: BP 104/74; PULSE 95; RESP 18; O2SAT 98; BMI 27.1
--- OUTSIDE RECORDS SUMMARY | 2024-12-29 15:34 | XMS_ITS | Clinical Summary ---
Author Organization [facility] Address [address] [facility] [place] [address] Care Team Providers Care Cryolite Recovery Operator Name Role Phone Pcp, No Primary Care Provider [phone] Social History Tobacco Use Types Packs/Day Years [...] Adults 18 yrs or above (or HM Modifier)([facility]) 1980 Hepatitis C Virus Infection in Adolescents and Adults: Screening (or Modifier) ([facility]) 1980 [facility] Screening Reminder: Minnie calderon for all adults ([facility]) 1980 Tobacco Smoking Cessation: i n Adults excluding Women: Behavioral and Pharmacotherapy Interventions ([facility]) 1980 DTaP/Tdap/Td Vaccines ([facility]) (1 - Tdap) 1981 Cervical Cancer Screenin 1-65 yrs of age (or Modifier) 1983 Cervical Cancer Screening: P ap every 3 yrs pts age 21-65 1983 Cervical Cancer: Pap Screeni ng with Modifier timing ([facility]) 1983 Cervical Cancer: hrHPV alone or with cotesting Pap for Pts 30-65yrs screening every 5yrs ([facility]) 1983 Colorectal Cancer Screening 45 -75 Yrs (or HM Modifier) 2007 Colorectal Cancer: FLEXIBLE SIGMOIDOSCOPY Screening every 5 yrs 2007 Colorectal Cancer: Fecal Immunochemical Test (FIT) Annually [facility] 2007 Colorectal Cancer: High-sens itivity gFOBT Screening Annually [facility] 2007 Colorectal Cancer: Stool Col oguard Screening every 3 yrs 2007 Colorectal Cancer:CT Colonog louisa Screening every 5 yrs 2007 Lipid Screening: Every 5 yrs for Women aged 45+ (or HM Modifier) ([facility]) 2008 Breast Cancer: Screening Minnie ually age 50-74 yrs (or HM Modifier)([facility]) 2012 Zoster/Shingles Vaccine Seri es Screening: Adults aged 18+ yrs (or HM Modifiers)([facility]) (1 of 2) 2012 Flu Vaccination: Yearly for ages 18mos through 64 years (or Modifier)([facility]) 04/21/2024 COVID-19 Vaccine Screening: Initial Series and Booster Status ([facility]) (2023- season) 2024 RSV Vaccines (1 - 1-dose 75+ series) 2037 Pneumococcal Vaccination Scr eening: Pts 0-19 & 19-49 yrs of age ([facility]) Aged Out No longer eligible based on patient's age to complete this topic Medical Devices Not on file Insurance [facility] Care Teams Cryolite Recovery Operator Relationship Specialty Start Date End Date Pcp, Moni PCP - General Family Medicine 08/11/20
== END 2024-12-29 17:01 | disposition home or self-care (01) ==
LOC: HO.HMCC 12:56
PROVIDERS: PCP Internal Medicine; Visit Provider Internal Medicine
DX: E03.9 Hypothyroidism, unspecified (principal); D23.9 Other benign neoplasm of skin, unspecified; E78.5 Hyperlipidemia, unspecified; Z00.00 Encounter for general adult medical examination without abnormal findings

== ENCOUNTER → 2024-12-29 12:56 | Outpatient (BNVA) | payer BC, SELFPAY | PROVIDERS: PCP Internal Medicine; Visit Provider Internal Medicine | DX: Z00.00 Encounter for general adult medical examination without abnormal findings (principal); E03.9 Hypothyroidism, unspecified; D23.9 Other benign neoplasm of skin, unspecified; E78.5 Hyperlipidemia, unspecified | CPT/HCPCS: 96127 ==

== ENCOUNTER 2025-03-08 09:57 | Outpatient (REF) | payer BC, SELFPAY ==
--- OUTSIDE RECORDS SUMMARY | 2025-03-08 11:06 | XMS_ITS | Clinical Summary ---
Author Organization [facility] Address [address] [facility] [place] [address] Care Team Providers Care Advertising Director Name Role Phone Pcp, No Primary Care Provider [phone] Social History Tobacco Use Types Packs/Day Years [...] Adults 18 yrs or above (or HM Modifier)([facility]) 1980 Hepatitis C Virus Infection in Adolescents and Adults: Screening (or Modifier) ([facility]) 1980 [facility] Screening Reminder: Minnie calderon for all adults ([facility]) 1980 Tobacco Smoking Cessation: i n Adults excluding Women: Behavioral and Pharmacotherapy Interventions ([facility]) 1980 DTaP/Tdap/Td Vaccines ([facility]) (1 - Tdap) 1981 Cervical Cancer Screenin 1-65 yrs of age (or Modifier) 1983 Cervical Cancer Screening: P ap every 3 yrs pts age 21-65 1983 Cervical Cancer: Pap Screeni ng with Modifier timing ([facility]) 1983 Cervical Cancer: hrHPV alone or with cotesting Pap for Pts 30-65yrs screening every 5yrs ([facility]) 1983 Colorectal Cancer Screening 45 -75 Yrs (or HM Modifier ) 2007 Colorectal Cancer: FLEXIBLE SIGMOIDOSCOPY Screening every 5 yrs 2007 Colorectal Cancer: Fecal Imm unochemical Test (FIT) Annually [facility] 2007 Colorectal Cancer: High-sens itivity gFOBT Screening Annually [facility] 2007 Colorectal Cancer: Stool Col oguard Screening every 3 yrs 2007 Colorectal Cancer:CT Colonography Screening every 5 yr s 2007 Breast Cancer: Screening Minnie ually age 50-74 yrs (or HM Modifier)([facility]) 2012 Pneumococcal Vaccination Scr eening: Patients 50+ yrs of age ([facility]) (1 of 1 - PCV) 2012 Zoster/Shingles Vaccine Seri es Screening: Adults aged 18+ yrs (or HM Modifiers)([facility]) (1 of 2) 2012 COVID-19 Vaccine Screening: Initial Series and Booster Status ([facility]) ( - 2023- season) 2024 Flu Vaccination: Yearly for ages 18mos through 64 years (or Modifier)([facility]) 04/21/2025 RSV Vaccines (1 - 1-dose 75+ series) 2037 Medical Devices Not on file Insurance [facility] Care Teams Advertising Director Relationship Specialty Start Date End Date Judd, Moni PCP - General Family Medicine 08/11/20
[2025-03-08 13:57] LABS: TSH reflex Free T4 1.35 uIU/mL (0.32-4.0)
== END 2025-03-08 09:58 | disposition home or self-care (01) ==
LOC: HO.HMGCLDS 09:57
PROVIDERS: PCP Internal Medicine; Visit Provider Internal Medicine
DX: E03.9 Hypothyroidism, unspecified (principal)
CPT/HCPCS: 36415; 84443

== ENCOUNTER 2025-04-14 10:05 | Outpatient (AMB) | payer BC, SELFPAY ==
--- NOTE | 2025-04-14 10:06 | MHC.OFFVIS ---
Vital Signs 04/14/25 10:10 Height 5 ft 2 in Weight 147 lb 11.355 oz BMI 27.0 BP 138/76 Blood Pressure Location Rt brachial Position Sitting Pulse 88 Intake Visit Reasons: Colonoscopy Screening Intake Note: New patient in office today for colonoscopy screening. CC: Patient denies having any GI concerns today. She states she takes Miralax PRN if she gets constipated. Outbound Sales Representative Required: No Accompanied by: Self / Same As Patient Allergies No Known Allergies Allergy (Verified 04/14/25 10:12) HPI HPI Colonoscopy Screening: Details: 64-year-old female here for preprocedural meeting to discuss a screening colonoscopy. She is referred by Susana Curtis. PMX Hypothyroid PCOS High cholesterol Cervical degenerative disc disease Trigeminal neuralgia Chronic neck pain Anxiety * SURGICAL HISTORY Colonoscopy-2013- study Cholecystectomy * ALLERGIES: NKDA * [facility] LABS: Laboratory Tests 12/27/24 09:25 WBC 5.1 Hgb 13.5 Hct 37.9 Plt Count 245 Estimated GFR > 60 Total Bilirubin 1.0 AST 21 ALT 15 Alkaline Phosphatase 57 No chem panel TODAY'S VISIT She has had prior scopes at [facility] that were negative. She has occasional CIC with her ozrempic but MIralax successfully manages this, no upper GI problems. She denies any cardiac or respiratory problems No anes or sed problems NO ID problems. Her mother may have had a colon polyp in her 70's, she is unsuer and there is no FHX of CRC. [facility] Medical History Annual physical exam Normal pelvic exam Trigeminal nerve disorder Hyperlipidemia Chronic neck pain Anxiety History of mammogram Hirsutism History of PCOS Hypothyroidism Surgical History H/O colonoscopy Hx of cholecystectomy Family History Father Diabetes mellitus Mother Myocardial infarction Social History Housing: Apartment Patient Tobacco Use Status: Never used Tobacco e-Cigarette/Vaping Use: Never Used Second Hand Smoke Exposure: No service: No Current occupational status: employed Cognitive needs: No Hearing needs: No Vision needs: Yes Review of Systems Const Denies fatigue, Denies fever(s), Denies night sweats, Denies poor appetite and Denies weight loss ENT Reports Normal hearing present, Denies dental pain, Denies dysphagia, Denies hearing loss, Denies mouth pain, Denies odynophagia, Denies throat swelling, Denies tongue swelling and Reports other (Dentition adequate) Card Reports no additional complaints Resp Reports no additional complaints GI Details: Denies abdominal pain, Denies melena, Denies bloating, Denies hematochezia, Reports constipation, Denies GI cramping, Denies dysphagia, Denies excessive flatus, Denies early satiety, Denies heartburn, Denies diarrhea, Denies nausea, Denies odynophagia, Denies vomiting and Denies hematemesis Skin/Breast Denies pruritus, Denies lesions, Denies rash and Denies jaundice Neuro Reports Normal hearing present and Denies Abnormal speech present Endo Denies fatigue Aller/Immun Denies throat swelling and Denies tongue swelling Physical Exam Vital Signs: Last Vital Signs Pulse 88 04/14/25 10:10 BP 138/76 04/14/25 10:10 BMI result Body Mass Index 27.0 Const General: cooperative, no acute distress, well developed and well groomed Nutritional Appearance: well nourished Orientation/consciousness: oriented to person, oriented to place and oriented to time Limitations: No language barrier HEENT Head: Yes normocephalic and Yes atraumatic Eyes General: appearance normal, both eyes and all related structures Pupils: Equal, round and reactive pupils present Neck Neck: Yes normal visual inspection and Yes no lymphadenopathy Thyroid: Thyroid normal Resp Effort & Inspection: normal respiratory effort and able to speak in complete sentences Auscultation: clear to auscultation bilaterally Cardio Rate: regular rate Rhythm: regular rhythm Heart sounds: Normal, physiologic split S2 sound present Peripheral pulses: radial pulses present and posterior tibial pulses present GI Inspection: No distended and No Abdominal panniculus present Palpation (GI): Soft to palpation, nontender, no guarding, not rigid and No hepatosplenomegaly present Percussion: Yes normal to percussion Auscultation: normal bowel sounds Rectal Exam - Female: deferred Skin General skin exam: no rashes or lesions noted, turgor normal, skin not dry, no jaundice, No spider nevi and no striae Rashes: no rashes Nails: normal Neuro General: oriented to person, oriented to place and oriented to time Cranial nerves: Yes Equal, round and reactive pupils present and Yes Normal hearing present Speech: No Abnormal speech present Extrem General: Yes normal to inspection, No clubbing, No cyanosis and No edema Psych Appearance: grossly normal and well kempt Mental Status: mental status grossly normal Speech and movement: Normal speech and movement present Affect: normal affect Attitude: cooperative Thought process: Normal thought process present and not confabulating Thought content: Normal thought content present Insight: Good insight present (Psych) Judgement: Good judgement present (Psych) Assessment & Plan Assessment & Plan (1) Pre-op examination: Code(s): Z01.818 - Encounter for other preprocedural examination Category: Medical Plan She has had prior scopes at [facility] that were negative. She has occasional CIC with her ozrempic but MIralax successfully manages this, no upper GI problems. She denies any cardiac or respiratory problems No anes or sed problems NO ID problems. Her mother may have had a colon polyp in her 70's, she is unsuer and there is no FHX of CRC. Orders: Orders Comprehensive Met. Panel Today Z01.818 - Encounter for other preprocedural examination Colonoscopy - GI Use Only Today Z01.818 - Encounter for other preprocedural examination Medications: New peg 3350-electrolytes 236-22.74-6.74 -5.86 gram (Golytely) until fecal effluent is clear; do not exceed a total volume of 2,000 mL 240 mL PO Q10M 4,000 mL 0RF 1 day Z12.11 - Encounter for screening for malignant neoplasm of colon bisacodyl (Dulcolax (bisacodyl)) 10 mg (2 x 5 mg) PO BEDTIME 4 tabs 0RF 2 days Coding Level of Care Code New Pt Level 3 (15132) Diagnoses Pre-op examination Z01.818
[2025-04-14 10:10] VITALS: BP 138/76; PULSE 88; BMI 27.0
--- OUTSIDE RECORDS SUMMARY | 2025-04-14 10:25 | XMS_ITS | Clinical Summary ---
Author Organization [facility] [facility] Address [address] [facility] [place] [address] Care Team Providers Care Blood Tester Fowl Name Role Phone Pcp, No Primary Care Provider [phone] Social History Tobacco Use Types Packs/Day Years [...] Adults 18 yrs or above (or HM Modifier)([facility]) 1980 Hepatitis C Virus Infection in Adolescents and Adults: Screening (or Modifier) ([facility]) [address] [facility] Screening Reminder: Minnie calderon for all adults ([facility]) 1980 Tobacco Smoking Cessation: i n Adults excluding Women: Behavioral and Pharmacotherapy Interventions ([facility]) 1980 DTaP/Tdap/Td Vaccines ([facility]) (1 - Tdap) 1981 Cervical Cancer Screenin 1-65 yrs of age (or Modifier) 1983 Cervical Cancer Screening: P ap every 3 yrs pts age 21-65 1983 Cervical Cancer: Pap Screeni ng with Modifier timing ([facility]) 1983 Cervical Cancer: hrHPV alone or with cotesting Pap for Pts 30-65yrs screening every 5yrs ([facility]) 1983 Colorectal Cancer Screening 45 -75 Yrs (or HM Modifier ) 2007 Colorectal Cancer: FLEXIBLE SIGMOIDOSCOPY Screening every 5 yrs 2007 Colorectal Cancer: Fecal Imm unochemical Test (FIT) Annually [facility] 2007 Colorectal Cancer: High-sens itivity gFOBT Screening Annually [facility] 2007 Colorectal Cancer: Stool Col oguard Screening every 3 yrs 2007 Colorectal Cancer:CT Colonography Screening every 5 yr s 2007 Breast Cancer: Screening Minnie ually age 50-74 yrs (or HM Modifier)([facility]) 2012 Pneumococcal Vaccination Scr eening: Patients 50+ yrs of age ([facility]) (1 of 1 - PCV) 2012 Zoster/Shingles Vaccine Seri es Screening: Adults aged 18+ yrs (or HM Modifiers)([facility]) (1 of 2) 2012 COVID-19 Vaccine Screening: Initial Series and Booster Status ([facility]) ( - 2023- season) 2024 Flu Vaccination: Yearly for ages 18mos through 64 years (or Modifier)([facility]) 04/21/2025 RSV Vaccines (1 - 1-dose 75+ series) 2037 Medical Devices Not on file Insurance [facility] Care Teams Blood Tester Fowl Relationship Specialty Start Date End Date Judd, Moni PCP - General Family Medicine 08/11/20
== END 2025-04-14 10:31 | disposition home or self-care (01) ==
LOC: HO.HGI 10:06
PROVIDERS: PCP Internal Medicine; Visit Provider Nurse Practitioner
DX: Z01.818 Encounter for other preprocedural examination (principal); Z12.11 Encounter for screening for malignant neoplasm of colon
CPT/HCPCS: S0285

== ENCOUNTER 2025-09-06 09:04 | Outpatient (AMB) | payer BC, SELFPAY ==
--- NOTE | 2025-09-06 09:06 | MHC.OFFVIS ---
Intake Visit Reasons: 6 MONTH F/U Allergies No Known Allergies Allergy (Verified 09/06/25 09:10) Medication List - Last Reconciled 09/06/25 by Esther Hoyos CNP amitriptyline 20 mg (2 x 10 mg) PO BEDTIME 90 days bisacodyl (Dulcolax (bisacodyl)) 10 mg (2 x 5 mg) PO BEDTIME 2 days clonazepam (Klonopin) 0.5 mg PO DAILY 30 days levothyroxine half tablet two days a week and a one tablet the rest of the week peg 3350-electrolytes [id number] -5.86 gram (Golytely) 240 mL PO Q10M 1 day spironolactone 100 mg PO BID HPI Comments Details: Continues to say she is doing great. She was doing well with amitriptyline 20mg at bedtime and clonazepam 0.5mg daily, generally taking 1/2 tab in morning, 1/4 at night, and 1/4 during day if needed. Few, rare flares, which can be triggered by stress or weather changes, most stress related to work, but flares are brief and not as severe, able to manage with medications and coping techniques. Has rarely had to miss any time from work. Still exercising. Sleep was okay. Doing great, and says that her normal is good. 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 Throat fullness resolved.? Flare ups of L sided facial pain on occasion which are more mild and seem to be triggered by weather changes or stress. Throat fullness resolved. Was out of work for 7 months, went back to work 12/21/2023. Previously having L sided facial pain and throat fullness, with stress/anxiety increased around 05/2023 and had some issues getting clonazepam due to shortage. Did not think current dose of clonazepam was working as well as it had been previously. Was having constant, low level pain in L frontotemporal area and L facial pain. Throat often feels dry. No trouble swallowing. Extend medical leave from work. Sleeping okay at night. Working with therapist, meditating, getting massages. Tried to taper clonazepam in 05/2023 but two weeks later her throat tightened after stressful incident at work and went back to clonazepam 0.5mg BID. The amitriptyline has helped the daily LISA. Goes to work and is terrified that she will get worse and will not be able to work. Increased stress at work. Getting massages, deep tissue massage and salt therapy and chiropractor. Doing stretching and deep tissue massage. In the past she was on almost 20 different medications and underwent MRIs of head and neck CT scan and saw multiple physicians. Ultimately, she was given clonazepam 1 mg a day and almost instantly all of her symptoms went away. She continued on the clonazepam with no problems for about 1.5-2 years and then tapered off in 2005 and was fine for the next 15 years when her symptoms recurred again in the left side with similar complaints but milder in intensity. Sx recurred the end of March 2021 with a left facial maxillary area pressure a feeling of pulling and tightness in the left confucianist and particularly in the left throat which makes it hard for her to swallow and speak. She again tried alternative methods, including physical therapy, acupuncture and trigger point injections, which actually made her feel worse. She had an ultrasound. She was given diazepam and took a single pill but didn't feel well with it. She was started on carbamazepine 100 mg twice a day which has not helped. [facility] Medical History Annual physical exam Normal pelvic exam Trigeminal nerve disorder Hyperlipidemia Chronic neck pain Anxiety History of mammogram Hirsutism History of PCOS Hypothyroidism Surgical History H/O colonoscopy Hx of cholecystectomy Family History Father Diabetes mellitus Mother Myocardial infarction Social History Housing: Apartment Patient Tobacco Use Status: Never used Tobacco e-Cigarette/Vaping Use: Never Used Second Hand Smoke Exposure: No service: No Current occupational status: employed Cognitive needs: No Hearing needs: No Vision needs: Yes Review of Systems Const Denies chills, Denies daytime sleepiness, Denies difficulty sleeping, Denies fatigue, Denies fever(s), Denies frequent falls, Reports headache(s), Denies increased appetite, Denies poor appetite, Denies snoring, Denies weakness, Denies weight gain and Denies weight loss Eyes Denies loss of vision ENT Denies vertigo, Denies dizziness, Reports headache(s) and Denies neck pain Card Denies chest pain at rest, Denies chest pain with activity, Denies syncope, Denies leg edema, Denies palpitations, Denies dyspnea and Denies dyspnea on exertion Resp Denies cough, Denies dyspnea, Denies dyspnea on exertion and Denies snoring GI Denies abdominal pain, Denies constipation, Denies heartburn, Denies diarrhea and Denies nausea Denies urinary frequency, Denies urinary incontinence and Denies urinary urgency Musc Denies abnormal gait, Denies back pain, Denies myalgias, Denies arthralgias, Denies neck pain, Denies numbness and Denies tingling Neuro Denies abnormal gait, Denies vertigo, Denies dizziness, Denies syncope, Denies frequent falls, Reports headache(s), Denies lack of coordination, Denies loss of vision, Denies memory loss, Denies numbness, Denies Other visual disturbances, Denies restless legs, Denies seizure-like activity, Denies tingling, Denies paresthesias, Denies tremor(s) and Denies weakness Psych Reports anxiety, Denies depression, Denies auditory hallucinations, Denies memory loss and Denies visual hallucinations Endo Denies fatigue and Denies palpitations Physical Exam Const Other: General Appearance:? normal, in no acute distress. Heart:? S1, S2 normal, no murmurs. Lungs:? clear anteriorly and posteriorly. Musculoskeletal:? normal. Extremities:? no edema. Psych:? alert, oriented, cognitive function intact, cooperative with exam. Neuro Other: Abnormal Neurological Findings:?none.? Mental Status: alert and oriented X 3. Normal attention, orientation, memory, and affect. Cranial Nerves: Pupils are equal, round, and reactive to light. External ocular muscles are intact. Visual ford are full, no ptosis. Face is symmetrical, no facial weakness or droop. Facial sensations are normal. Tongue protrudes in midline. Palate elevates symmetrically. Shoulder shrugging is normal Motor Examination: Normal muscle tone, bulk and strength. No atrophy or fasciculations. No drift of the extended upper extremities. DTR 2+. Plantars are flexor. Sensory Exam: Normal light touch, temperature, pinprick, vibration, and joint-position sensations. Rhomberg sign is absent. Coordination: No ataxia. No titubation. Gait Exam: Within normal limits. Cerebellar Signs: [id number] is okay. Extrapyramidal System: No tremor, rigidity with normal facial expressions. No bradykinesia. No bradyphrenia. Normal arm swing and posture. No propulsion or retropulsion. Speech: Normal. Results Reviewed Results Reviewed: 08/07/21 MRI brain normal. Assessment & Plan Assessment & Plan (1) Facial pain syndrome: Code(s): G50.0 - Trigeminal neuralgia Category: Medical Plan: Continue amitriptyline 10mg 2 tablets at bedtime. (2) Anxiety: Code(s): F41.9 - Anxiety disorder, unspecified Category: Medical Plan: Continue clonazepam 0.5mg 1 tablet daily #30 for 30 days. Follow up in 6 months or sooner as needed. Coding Level of Care Code Est Pt Level 4 (75316) Diagnoses Facial pain syndrome G50.0 Anxiety F41.9
== END 2025-09-06 09:28 | disposition home or self-care (01) ==
LOC: HO.HSM 09:05
PROVIDERS: PCP Internal Medicine; Referring Provider Internal Medicine; Visit Provider Registered Nurse
DX: G50.0 Trigeminal neuralgia (principal); F41.9 Anxiety disorder, unspecified
CPT/HCPCS: 99214